=== PATIENT | male | born 1950 | race Caucasian/White ===

== ENCOUNTER 2016-12-20 07:49 | Day surgery (SDC) | payer OTHER ==
[2016-12-14 10:59] VITALS: BMI 27.8
[2016-12-20] MEDS ORDERED: PROPOFOL 20 ML ONE ×2 (08:12)
[2016-12-20 10:23] VITALS: TEMP 97
[2016-12-20 10:28] VITALS: BP 111/50; PULSE 74
== END 2016-12-20 10:00 | disposition home or self-care (01) ==
LOC: FASU-ENDO 07:49
PROVIDERS: ATTEND Internal Medicine Gastroenterology
PROC: 0DJD8ZZ Inspection of Lower Intestinal Tract, Via Natural or Artificial Opening Endoscopic (ICD-10-PCS; principal; 2016-12-20 09:09)
DX: Z86.010 Personal history of colon polyps (principal); Z80.0 Family history of malignant neoplasm of digestive organs